=== PATIENT | male | born 1990 | race Caucasian/White ===

== ENCOUNTER 2017-01-06 18:44 | Emergency (ER) | payer BC, OTHER ==
[~2017-01-06 18:44] MED LIST: CEPH500C PO; OXYC1TAB63 PO
== END 2017-01-06 18:53 | disposition left against medical advice (07) ==
LOC: PHED 18:44
DX: R10.10 Upper abdominal pain, unspecified (principal)
CPT/HCPCS: 99281

== ENCOUNTER 2018-01-18 09:54 | Emergency (ER) | payer BC ==
[~2018-01-18] VITALS: Ht 180.3 cm; Wt 94.5 kg
[2018-01-18 10:04] VITALS: BP 150/75; PULSE 84; RESP 15; TEMP 98.2; O2SAT 99
--- NOTE | 2018-01-18 12:31 | PD ---
HPI Chief Complaint: Abdominal Pain Time Seen by Provider: 12:05 Travel History International Travel<30 days: No Contact w/Intl Traveler<30days: No Traveled to known affect area: No History of Present Illness HPI This 27-year-old male is complaining of decreased appetite. He had been on a cruise a week ago and when he came back he had vomiting and diarrhea. He was given prescription for nausea medicine. It also taken some amoxicillin because he had a respiratory infection. He feels like he has gotten better. He has been able to be though not as much as usual. He has been eating small amounts often. He gets some intermittent crampy abdominal pain. He feels like he is getting better from his illness. He does work delivering food. PFSH Past Medical History Asthma: Yes Cancer: No Diabetes: No Diminished Hearing: No Endocrine: No Hepatitis: No Immune Disorder: No Psychiatric: No Respiratory: Yes (ASTHMA) Thyroid Disease: No Past Surgical History Abdominal Surgery: No AICD: No Cardiac Surgery: No Ear Surgery: No Endocrine Surgery: No Eye Surgery: No Genitourinary Surgery: No Gynecologic Surgery: No Joint Replacement: No Pacemaker: No Thoracic Surgery: No Other Surgery: Yes Social History Alcohol Use: Yes (Occasional. Last use yesterday.) Tobacco Use: No Substance Use: No Allergies-Medications (Allergen,Severity, Reaction): Coded Allergies: No Known Allergies (Unverified Adverse Reaction, Unknown, 01/18/18) Reported Meds & Prescriptions Reported Meds & Active Scripts Active No Active Prescriptions or Reported Medications Review of Systems General / Constitutional: No: Fever, Chills Eyes: No: Diploplia, Photophobia HENT: No: Headaches Cardiovascular: No: Chest Pain or Discomfort Respiratory: No: Cough, Shortness of Breath Gastrointestinal: Positive: Vomiting, Diarrhea Genitourinary: No: Urgency, Frequency Musculoskeletal: No: Myalgias Skin: No Rash Neurologic: No: Weakness, Dizziness Psychiatric: No: Anxiety, Depression Endocrine: No: Heat Intolerance Hematologic/Lymphatic: No: Easy Bruising Physical Exam Narrative GENERAL: Well-developed male SKIN: Focused skin assessment warm/dry. HEAD: Atraumatic. Normocephalic. EYES: Pupils equal and round. No scleral icterus. No injection or drainage. ENT: No nasal bleeding or discharge. Mucous membranes pink and moist. NECK: Trachea midline. No JVD. CARDIOVASCULAR: Regular rate and rhythm. No murmur appreciated. RESPIRATORY: No accessory muscle use. Clear to auscultation. Breath sounds equal bilaterally. GASTROINTESTINAL: Abdomen soft, non-tender, nondistended. Hepatic and splenic margins not palpable. MUSCULOSKELETAL: No obvious deformities. No clubbing. No cyanosis. No edema. NEUROLOGICAL: Awake and alert. No obvious cranial nerve deficits. Motor grossly within normal limits. Normal speech. PSYCHIATRIC: Appropriate mood and affect; insight and judgment normal. Data Data Last Documented VS Vital Signs Date Time Temp Pulse Resp B/P (MAP) Pulse Ox O2 Delivery O2 Flow Rate FiO2 01/18/18 10:04 98.2 84 15 150/75 (100) 99 MDM Medical Decision Making Medical Screen Exam Complete: Yes Emergency Medical Condition: Yes Medical Record Reviewed: Yes Differential Diagnosis Differential includes gastritis, enteritis, colitis Narrative Course Patient has had a prolonged course but feels like he is getting better. His examination is not suggestive of any acute surgical issue. I don't think lab work or imaging is indicated at this time. He should be off of work 2 more days and then he'll be okay to return Diagnosis Primary Impression: Gastroenteritis Departure Forms: Tests/Procedures, Work Release Enter return to work date: Jan 21, 2018 Scripts No Active Prescriptions or Reported Meds Disposition: DISCHARGE HOME Condition: Stable Vishal Santizo MD Jan 18, 2018 12:31
== END 2018-01-18 12:40 | disposition home or self-care (01) ==
LOC: PHED 09:54
DX: K52.9 Noninfective gastroenteritis and colitis, unspecified (principal); J45.909 Unspecified asthma, uncomplicated
CPT/HCPCS: 99282